=== PATIENT | female | born 1950 | race Caucasian/White ===

== ENCOUNTER 2016-09-01 08:26 | Day surgery (SDC) | payer OTHER, BC ==
[2016-08-31 14:29] VITALS: BMI 24.7
[2016-09-01] MEDS ORDERED: PROPOFOL 20 ML ONE ×4 (08:50→10:43)
[2016-09-01 10:01] LABS: CALCIUM 9.2 mg/dL (8.5-10.1); CREATININE 0.6 mg/dL (0.55-1.02)
[2016-09-01 12:28] VITALS: BP 102/60; PULSE 85; TEMP 98
== END 2016-09-01 12:28 | disposition home or self-care (01) ==
LOC: JASU-ENDO 08:26
PROVIDERS: ATTEND Internal Medicine Gastroenterology
PROC: 0DJD8ZZ Inspection of Lower Intestinal Tract, Via Natural or Artificial Opening Endoscopic (ICD-10-PCS; principal; 2016-09-01 09:00)
DX: R19.4 Change in bowel habit (principal); Z53.8 Procedure and treatment not carried out for other reasons; K64.4 Residual hemorrhoidal skin tags
CPT/HCPCS: 36415; 80048; 83735

== ENCOUNTER 2016-10-15 09:55 | Day surgery (SDC) | payer OTHER, BC ==
[2016-10-15] MEDS ORDERED: METOCLOPRAMIDE HCL INJECTION 10 MG/2 ML VIAL ONE (10:25)
[2016-10-15 10:28] VITALS: BMI 25.6
[2016-10-15] MEDS ORDERED: METOCLOPRAMIDE HCL INJECTION 10 MG/2 ML VIAL IVPB ONE (10:37)
[2016-10-15] MEDS ORDERED: PROPOFOL 60 ML ONE (10:42)
[2016-10-15] MEDS ORDERED: ONDANSETRON 4 MG/2 ML VIAL ONE (10:42)
[2016-10-15 11:48] VITALS: TEMP 97.4
[2016-10-15 12:41] VITALS: BP 108/63; PULSE 70
--- NOTE | 2016-10-16 12:52 | PATH ---
Surgical Pathology Report Patient Name: JIGAR FRAUSTO [facility]. Rec. #: [id number] /Age/Gender: 1950 (Age: 66) / F Account: [id number] Location: U-ENDOSCOPY Taken: 10/15/2016 Received: 10/15/2016 Reported: 10/16/2016 Physicians: Juan Daniel Linares D.O. Specimen(s) Received A: POLYP ASCENDING COLON B: POLYP DISTAL TRANSVERSE Clinical History Diarrhea Colon polyps, hemorrhoids Final Diagnosis A. COLON, ASCENDING, POLYP, BIOPSY/POLYPECTOMY: POLYPOID FRAGMENT OF COLONIC MUCOSA WITH ACTIVE INFLAMMATION AND SURFACE HYPERPLASTIC CHANGE MOST SUGGESTIVE OF INFLAMMATORY-TYPE POLYP. B. COLON, DISTAL TRANSVERSE, POLYP, BIOPSY/POLYPECTOMY: HYPERPLASTIC POLYP. Electronically Signed Jason Vazquez M.D. Gross Description A. Received in formalin, labeled "polyp ascending colon" are 2 carrera, irregular portions of soft tissue measuring 0.2 and 0.4 cm in greatest dimension. The specimens are submitted in toto in one cassette. B. Received in formalin, labeled "polyp distal transverse" is a carrera, irregular portion of soft tissue measuring 0.5 cm in greatest dimension. The specimen is submitted in toto in one cassette. 10/15/201610/15/2016
== END 2016-10-15 12:41 | disposition home or self-care (01) ==
LOC: JASU-ENDO 09:55
PROVIDERS: ATTEND Internal Medicine Gastroenterology
PROC: 0DBL8ZX Excision of Transverse Colon, Via Natural or Artificial Opening Endoscopic, Diagnostic (ICD-10-PCS; 2016-10-15)
PROC: 0DBF8ZX Excision of Right Large Intestine, Via Natural or Artificial Opening Endoscopic, Diagnostic (ICD-10-PCS; principal; 2016-10-15 11:00)
DX: D12.3 Benign neoplasm of transverse colon (principal); R19.4 Change in bowel habit; K63.5 Polyp of colon; K63.89 Other specified diseases of intestine; K64.4 Residual hemorrhoidal skin tags
CPT/HCPCS: 88305-TC

== ENCOUNTER 2017-07-07 06:18 | Day surgery (SDC) | payer OTHER, BC ==
[2017-07-05 15:51] VITALS: BMI 24.4
[2017-07-07] MEDS ORDERED: ROPIVACAINE HCL 0.5% 30ML VIAL ONE (07:15)
[2017-07-07] MEDS ORDERED: MIDAZOLAM HCL 2 MG/2 ML SINGLE DOSE VIAL ONE ×2 (07:16)
--- NOTE | 2017-07-07 08:01 | HP ---
Satellite [facility] - Chief Complaint Chief Complaint: right shoulder pain History Source: Patient - Past Medical History Allergies/Adverse Reactions: Allergies Allergy/AdvReac Type Severity Reaction Status Date / Time No Known Allergies Allergy Verified 07/05/17 15:42 - Current Medications Current Medications: Home Medications Medication Instructions Recorded Calcium Carbonate [Calcium] 500 mg PO BID 08/31/16 Ibuprofen [Advil -] 400 - 800 mg PO PRN PRN 07/05/17 Satellite Physical Exam - Physical Examination Vital Signs: Vital Signs Period Temp Pulse Resp BP Sys/Strong Pulse Ox Last 24 Hr 97 Extremities: Other (+ TDA weakness, + impingement sign) Satellite Impression/Plan - Impression/Plan Impression: right RC tear Operative Procedure: arthroscopy right shoulder with RC repair Date to be Performed: 07/07/17
[2017-07-07] MEDS ORDERED: SCOPOLAMINE HYDROBROMIDE 1 PATCH PATCH.TD72 ONE (08:11)
[2017-07-07] MEDS ORDERED: ROCURONIUM BROMIDE 50 MG/5 ML VIAL ONE (08:21)
[2017-07-07] MEDS ORDERED: LIDOCAINE HCL/PF 2% SDV 5ML VIAL ONE (08:21)
[2017-07-07] MEDS ORDERED: PROPOFOL 20 ML ONE (08:21)
[2017-07-07] MEDS ORDERED: DEXAMETHASONE SOD PHOSPHATE 4 MG/1 ML VIAL ONE (08:31)
[2017-07-07] MEDS ORDERED: ceFAZolin SODIUM 1 GM VIAL ONE (08:32)
[2017-07-07] MEDS ORDERED: ceFAZolin SODIUM 1 GM VIAL IVPB ONE (08:34)
[2017-07-07] MEDS ORDERED: PHENYLEPHRINE HCL 10 MG/1 ML SINGLE DOSE VIAL ONE (08:36)
[2017-07-07] MEDS ORDERED: GLYCOPYRROLATE 0.2 MG/1 ML VIAL ONE (09:19)
[2017-07-07] MEDS ORDERED: NEOSTIGMINE METHYLSULFATE 0.5 MG/ML - 10 ML MDV ONE (09:19)
--- NOTE | 2017-07-07 09:34 | OP ---
Operative Note - Note: Operative Date: 07/07/17 ([facility]) Pre-Operative Diagnosis: right shoulder rct Operation: right shoulder arthroscopy RCR, SAD Implants: arthrex speedbridge, 1 swivelock Post-Operative Diagnosis: Same as Pre-op Surgeon: Rian Galindo Crystallographer: Darren Lee Anesthesiologist/NETSUITE DEVELOPER: Libby Walker Anesthesia: General, Local Specimens Removed: shavings Estimated Blood Loss (mls): 5 Operative Report Dictated: Yes
[2017-07-07] MEDS ORDERED: ONDANSETRON 4 MG/2 ML VIAL IVPUSH PRN (10:56)
[2017-07-07] MEDS ORDERED: IBUPROFEN 800 MG/8 ML IJ IVPB PRN (10:56)
[2017-07-07] MEDS ORDERED: oxyCODONE HCL 5 MG TABLET PO PRN (10:56)
[2017-07-07] MEDS ORDERED: LACTATED RINGERS SOLUTION 1,000 ML IV SCH (11:00)
[2017-07-07 11:37] VITALS: TEMP 98
[2017-07-07 12:50] VITALS: BP 100/65; PULSE 64
--- NOTE | 2017-07-08 08:57 | OP ---
DATE OF OPERATION: 07/07/2017 PREOPERATIVE DIAGNOSIS: Right rotator cuff tear. POSTOPERATIVE DIAGNOSIS: Right rotator cuff tear. PROCEDURE: Arthroscopy of right shoulder with arthroscopic rotator cuff repair. SURGICAL ATTENDING: Rian Galindo MD ANESTHESIA: Regional and general. CLOSURE: A SpeedBridge and SwiveLock for rotator cuff and 3-0 nylon for skin. ESTIMATED BLOOD LOSS: Negligible. COMPLICATIONS: None. CONDITION: Recovery room in stable condition. DESCRIPTION OF OPERATIVE PROCEDURE: Patient taken to the operating room on July 07, 2017. Regional and general anesthesia was administered by the anesthesiologist. IV Kefzol administered prophylactically prior to the case. Patient was placed in the beach chair position with all prominences well padded. The right shoulder area was prepped and draped in the usual sterile fashion. IV Kefzol was administered prophylactically prior to the case. The posterior portal was made 2 fingerbreadths below the acromion, first with a 15 blade, followed by a blunt trocar. A circumferential exam of the glenohumeral joint revealed the following: Intact glenoid and humeral head articular cartilage, intact labrum circumferentially, no loose bodies in the axillary pouch, intact biceps and biceps anchor, intact subscapularis to its insertion. Looking superiorly, there was a large rotator cuff tear with some minimal displacement. The fluid was drained from the shoulder, and trocar was removed. The posterior trocar was redirected in the subacromial space. An accessory lateral and anterior portal were then made using a spinal needle, a 15 blade, and a blunt trocar. A complete bursectomy was performed, exposing the rotator cuff tear on the humeral head. The coracoacromial ligament was identified and detached off the anterior acromion and was further debrided. An undersurface acromial debridement up to the appropriate level was performed using the acromionizer bur to gain sufficient height for the rotator cuff. The bur was also used to produce a bleeding surface on the greater tuberosity for later rotator cuff adhesion. All soft tissue in and around the edge of the rotator cuff and the greater tuberosity was debrided using shaver. The SpeedBridge was then used for repair. Two medial row anchors at the articular margin were malleted into place, that were preloaded with FiberTape suture. They were fanned out throughout the rotator cuff and docked in the anterior portal. One anterior limb and one posterior limb were then fixated with a lateral posterior row anchor, then one anterior and one posterior limb were fixated using a lateral-row anterior anchor. This achieved excellent fixation of the rotator cuff. There was still some area posteriorly that was not fixated with this amount of repair. Two FiberWire sutures were passed using a Scorpio needle through the rotator cuff, and then, an accessory SwiveLock was then placed posterior to repair that portion of the cuff. All sutures were cut snug with the bone. Probing of the rotator cuff revealed excellent fixation, and range of motion revealed good space for the rotator cuff as well as excellent repair. The trocars were then removed after the shoulder was irrigated. The portals were closed using 3-0 nylon. Sterile pressure dressing was placed over the incisions. The patient was awakened from anesthesia and transferred to recovery in stable condition. No complications. Estimated blood loss: Negligible. Rossi DE LA [id number]
--- NOTE | 2017-07-08 17:17 | PATH ---
Surgical Pathology Report Patient Name: JIGAR FRAUSTO [facility]. Rec. #: [id number] /Age/Gender: 1950 (Age: 67) / F Account: [id number] Location: [facility] SURGICAL Taken: 07/07/2017 Received: 07/07/2017 Reported: 07/08/2017 Physicians: Rian Galindo M.D. Specimen(s) Received SHAVINGS Clinical History Right shoulder rotator cuff tear Final Diagnosis SHOULDER SHAVINGS, RIGHT, ARTHROSCOPY AND ROTATOR CUFF REPAIR: BENIGN FIBROCARTILAGE, SYNOVIUM, SKELETAL MUSCLE, AND BONE. Electronically Signed Santa Colon M.D. Gross Description Received in formalin, labeled "right shoulder shavings," is a 5 x 3.2 x 0.6 cm. aggregate of carrera-yellow soft tissue fragments. A route service representative portion is submitted in one cassette. 07/07/201707/07/2017
== END 2017-07-07 12:54 | disposition home or self-care (01) ==
LOC: JASU-SURG 06:18
PROVIDERS: ATTEND Orthopaedic Surgery
PROC: 0RNJ4ZZ Release Right Shoulder Joint, Percutaneous Endoscopic Approach (ICD-10-PCS; 2017-07-07)
PROC: 0RBJ4ZZ Excision of Right Shoulder Joint, Percutaneous Endoscopic Approach (ICD-10-PCS; principal; 2017-07-07 08:00)
PROC: 0LB14ZZ Excision of Right Shoulder Tendon, Percutaneous Endoscopic Approach (ICD-10-PCS; 2017-07-07 08:00)
DX: M75.101 Unspecified rotator cuff tear or rupture of right shoulder, not specified as traumatic (principal)
CPT/HCPCS: 88304-TC; 94760